=== PATIENT | male | born 1995 | race Caucasian/White ===

== ENCOUNTER 2024-07-15 21:18 | Emergency (ER) | payer OTHER ==
[~2024-07-15] VITALS: Ht 190.5 cm; Wt 104.3 kg
[2024-07-15] MEDS ORDERED: KETOROLAC TROMETHAMINE INJ 30 MG/ML VIAL ONE (23:18)
[2024-07-15] MEDS: KETOROLAC TROMETHAMINE INJ 60 MG/2 ML VIAL IM ONE (23:23)
[2024-07-16] MEDS: SILVER SULFADIAZINE CREAM 25 GM TUBE TP ONE (00:27)
[2024-07-16] MEDS ORDERED: SILVER SULFADIAZINE CREAM 25 GM TUBE ONE (00:27)
[2024-07-16] MEDS ORDERED: CEPH500C2 PO (00:29)
[2024-07-16] MEDS ORDERED: SILV20CR13 TP (00:29)
[2024-07-16 01:07] VITALS: BP 134/82; TEMP 98; O2SAT 100
== END 2024-07-16 01:07 | disposition home or self-care (01) ==
LOC: ER 21:23
DX: S90.821A Blister (nonthermal), right foot, initial encounter (principal); X58.XXXA Exposure to other specified factors, initial encounter; Y93.89 Activity, other specified; Y92.89 Other specified places as the place of occurrence of the external cause; Y99.8 Other external cause status
CPT/HCPCS: 99284; 96372; 73610; 73630; J1885